=== PATIENT | male | born 1985 | race Caucasian/White ===

== ENCOUNTER 2019-05-19 04:08 | Emergency (ER) | payer OTHER ==
--- NOTE | 2019-05-19 04:22 | PDOC ---
Attending Attestation - Resident Resident Name: Luís Jimenez - ED Attending Attestation I have performed the following: I have examined & evaluated the patient, The case was reviewed & discussed with the resident, I agree w/resident's findings & plan - HPI HPI: 05/19/19 06:22 33 y/o male presenting to [facility] ER complaining of pain and difficulty extending the 2nd digit of his right hand. States he accidentally fell into a wall with the finger extended. The finger then momentarily hyper extended. Pt is now unable to fully extend at the DIP joint. Experiencing pain overlying the joint. Incident occurred approx. 1 hour prior to arrival. Denies any other associated trauma, including hitting his head or his neck. Denies taking any OTC pain relief medications prior to arrival. - Physicial Exam PE: 05/19/19 06:31 Pt has a right index finger mallet finger - Medical Decision Making 05/19/19 06:41 Pt will be placed in a finger splint with the index finger extended. He un derstands that he must not remove the splint for 6 weeks. He will be asked to follow with ortho.
[2019-05-19 04:34] VITALS: TEMP 98; BMI 25.0
[2019-05-19] MEDS ORDERED: IBUPROFEN 600 MG TABLET (FP) PO ONE (04:35)
--- NOTE | 2019-05-19 04:46 | PDOC ---
History of Present Illness - General Chief Complaint: Injury Stated Complaint: FINGER INJURY Time Seen by Provider: 05/19/19 04:18 History Source: Patient, Dials Inspector Used ([employer] Dials Inspector # [id number]) Exam Limitations: Language Barrier - History of Present Illness Initial Comments: HPI: 33 y/o male presenting to [facility] ER complaining of pain and difficulty extending the 2nd digit of his right hand. States he accidentally fell into a wall with the finger extended. The finger then momentarily hyper extended. Pt is now unable to fully extend at the DIP joint. Experiencing pain overlying the joint. Incident occurred approx. 1 hour prior to arrival. Denies any other associated trauma, including hitting his head or his neck. Denies taking any OTC pain relief medications prior to arrival. Medical Hx: - Denies past medical history. Denies prescription medications. Surgical Hx: - Pt denies past surgical history. Review of Systems: In addition to that documented in the HPI above, the additional ROS was obtained: Constitutional- Denies fevers or chills Head- Denies hitting his head CV- Denies chest pain Resp- Denies SOB GI- Denies abd pain MSK- Per HPI Physical Examination: Vital signs and nursing notes reviewed. Constitutional- Well-developed, well-nourished adult male in no acute distress or obvious discomfort. Found sitting upright on edge of hospital bed. Head- Normocephalic. No obvious external signs of trauma. Cardiovascular / Chest- Regular rate. Peripheral pulses- right radial pulse 3+. Respiratory- Breathing unlabored. Speaking in multi-word phrases without pausing. Neuro- Alert and oriented x4. Moving all four extremities spontaneously. MSK- 2nd digit on right hand held in minimally flexed position at DIP joint. Diffuse tenderness overlying the dorsal joint surface. Trace swelling without obvious bony deformity. Able to passively extend the finger completely. Intact sensation. Able to fully flex and extend at PIP and IP joints. No open skin lesions. Intact sensation to all surfaces of the digit. Skin- Warm and dry. Psych- Affect- appropriate. Mood- normal. Speech was non-labored, non- pressured. MDM: 33 y/o male presenting with pain and difficulty extending at DIP of right second digit. Afebrile. Vitals unremarkable for hypotension or tachycardia. Physical exam as described above. ED wet read of plain radiograph noted loss of joint space without obvious fracture or bone fragment. Suspect likely mallet finger injury given events and physical exam findings. Ordered Tylenol for pain relief. Applied finger splint. Discussed need for 3-4 weeks of continuous immobilization. Placed orthopedic referral for clinic follow up. Discharge instructions translated with [employer] Forensic Anthropologist # [id number] Luís Jimenez M.D., PGY2 Emergency Medicine Resident Past History - Past Medical History Allergies/Adverse Reactions: Allergies Allergy/AdvReac Type Severity Reaction Status Date / Time No Known Allergies Allergy Verified 05/19/19 04:39 - Psycho Social/Smoking Cessation Hx Smoking History: Never smoked Have you smoked in the past 12 months: No Information on smoking cessation initiated: No Hx Alcohol Use: No Drug/Substance Use Hx: No *Physical Exam - Vital Signs Last Vital Signs Temp Pulse Resp BP Pulse Ox 98 F 71 20 130/93 96 05/19/19 04:31 05/19/19 04:31 05/19/19 04:31 05/19/19 04:31 05/19/19 04:31 ED Treatment Course - RADIOLOGY Radiology Studies Ordered: Category Date Time Status FINGER(S) RIGHT [RAD] Stat Radiology 05/19/19 04:35 Ordered Discharge - Discharge Information Problems reviewed: Yes Clinical Impression/Diagnosis: Trigger finger, right index finger Condition: Good Disposition: HOME - Admission No - Follow up/Referral Referrals: Guillermo Wei [Primary Care Provider] - Aidan Cantrell DO [Staff Physician] - - Patient Discharge Instructions Patient Printed Discharge Instructions: DI for Finger Sprain, DI for Mallet Finger Additional Instructions: Lo vieron hoy por dolor e hinchazn en smalls speedy dedo derecho. La radiografa mostr un estrechamiento del espacio articular. [place] podra ser nolberto fractura, jailyn lo ms probable es que tenga algo llamado dedo de domenica. Debe mantener el dedo en la frula continuamente alex las prximas 3-4 semanas. Debe realizar un seguimiento con un mdico ortopdico. He introducido nolberto referencia para que naun al Dr. Cantrell. Deber llamar para hacer nolberto emilia. El nmero est incluido en lizzy paquete. Puede manny el contador Advil / Motrin (Ibuprofeno) para el dolor. Comience tomando 400 mg cada 6 horas. Si el dolor empeora, agregue Tylenol (Acetaminofeno) entre las dosis de Advil / Motrin (Ibuprofeno). Un horario de ejemplo es el siguiente: 12:00 pm 400 mg de ibuprofeno / Advil / Motrin 3:00 pm 1000mg Tylenol 6:00 pm 400 mg de ibuprofeno / Advil / Motrin 9:00 pm 1000mg Tylenol 12:00 am 400mg Ibuprofeno / Advil / Motrin etc. Regrese al servicio de urgencias para detectar sntomas nuevos o que empeoran. You were seen today for pain and swelling to your right second finger. The xray showed some narrowing of the joint space. This could be a fracture, but more likely you have something called mallet finger. You need to keep the finger in the splint continuously for the next 3-4 weeks. You need to follow up with an orthopedic doctor. I have entered a referral for you to see Dr. Cantrell. You will need to call to make an appointment. The number is included in this packet. You can take over the counter Advil/Motrin (Ibuprofen) for pain. Start with taking 400mg every 6 hours. If the pain becomes worse then add Tylenol (Acetaminophen) between doses of Advil/Motrin (Ibuprofen). An example schedule is as follows: 12:00 pm 400mg Ibuprofen/Advil/Motrin 3:00 pm 1000mg Tylenol 6:00 pm 400mg Ibuprofen/Advil/Motrin 9:00 pm 1000mg Tylenol 12:00 am 400mg Ibuprofen/Advil/Motrin etc. Return to the ED for new or worsening symptoms. Print Language: SLOVAK - Post Discharge Activity Work/Back to School Note: Back to Work
[2019-05-19 05:55] VITALS: BP 124/86; PULSE 76
== END 2019-05-19 06:32 | disposition home or self-care (01) ==
LOC: JER 04:08
PROC: 2W3JX1Z Immobilization of Right Finger using Splint (ICD-10-PCS; principal; 2019-05-19)
DX: M65.321 Trigger finger, right index finger (principal); E03.9 Hypothyroidism, unspecified
CPT/HCPCS: 29130; 73140-TC-RT-FY; 99283-25

== ENCOUNTER 2022-09-08 08:58 | Emergency (ER) | payer OTHER ==
[2022-09-08 09:11] VITALS: BP 113/79; PULSE 75; RESP 18; TEMP 96.2; BMI 23.7
== END 2022-09-08 11:14 | disposition home or self-care (01) ==
LOC: JER 08:58 → JERFT 08:58
DX: S05.01XA Injury of conjunctiva and corneal abrasion without foreign body, right eye, initial encounter (principal); H10.11 Acute atopic conjunctivitis, right eye; M54.40 Lumbago with sciatica, unspecified side
CPT/HCPCS: 99283-25

== ENCOUNTER 2023-06-22 01:40 | Emergency (ER) | payer OTHER ==
[2023-06-22 01:53] VITALS: BP 114/70; PULSE 72; RESP 20; TEMP 98.6; BMI 23.7
[2023-06-22] MEDS ORDERED: ACETAMINOPHEN 325 MG TABLET (FP) ONE (02:35)
[2023-06-22] MEDS ORDERED: KETOROLAC TROMETHAMINE 30 MG/1 ML VIAL ONE (02:35)
[2023-06-22] MEDS ORDERED: LIDOCAINE 4% PATCH TP ONE (02:35)
[2023-06-22] MEDS: KETOROLAC TROMETHAMINE 30 MG/1 ML VIAL IM ONE (02:38)
[2023-06-22] MEDS: ACETAMINOPHEN 500 MG TABLET (FP) PO ONE (02:39)
[2023-06-22] MEDS: LIDOCAINE 4% PATCH TP ONE (02:39)
[2023-06-22] MEDS ORDERED: LIDOCAINE PATCH REMOVAL MC SCH (22:00)
== END 2023-06-22 06:07 | disposition home or self-care (01) ==
LOC: JER 01:40
PROC: 3E0233Z Introduction of Anti-inflammatory into Muscle, Percutaneous Approach (ICD-10-PCS; principal; 2023-06-22)
DX: M25.552 Pain in left hip (principal); M54.50 Low back pain, unspecified
CPT/HCPCS: 72131-TC; 72170-TC-FY; 73502-TC-LT-FY; 99284-25

== ENCOUNTER 2023-10-13 04:54 | Day surgery (SDC) | payer OTHER ==
[2023-10-12 09:56] VITALS: BMI 23.7
[2023-10-13] MEDS ORDERED: DEXAMETHASONE SOD PHOSPHATE 10 MG/1 ML VIAL ONE (11:32)
[2023-10-13] MEDS: LIDOCAINE HCL 1% PRESERVATIVE FREE - 30ML VIAL IJ ONE (14:41)
[2023-10-13] MEDS: BUPIVACAINE HCL/PF 0.75% 10 ML VIAL NR ONE (14:41)
[2023-10-13 15:00] VITALS: BP 133/58; PULSE 52; RESP 20; TEMP 97.3
== END 2023-10-13 15:30 | disposition home or self-care (01) ==
LOC: JASU-SURG 04:54
PROVIDERS: ATTEND Pain Medicine Pain Medicine
PROC: 3E0T33Z Introduction of Anti-inflammatory into Peripheral Nerves and Plexi, Percutaneous Approach (ICD-10-PCS; 2023-10-13)
PROC: 3E0T3BZ Introduction of Anesthetic Agent into Peripheral Nerves and Plexi, Percutaneous Approach (ICD-10-PCS; principal; 2023-10-13 13:30)
DX: M47.816 Spondylosis without myelopathy or radiculopathy, lumbar region (principal)
CPT/HCPCS: J1100

== ENCOUNTER 2023-10-13 15:39 | Emergency (ER) | payer OTHER ==
[2023-10-13 15:46] VITALS: BP 129/82; PULSE 60; RESP 18; TEMP 97.7; BMI 23.7
== END 2023-10-13 16:33 | disposition home or self-care (01) ==
LOC: JER 15:39 → JERFT 15:39
DX: H57.89 Other specified disorders of eye and adnexa (principal)
CPT/HCPCS: 99281-25